=== PATIENT | female | born 1990 | race Caucasian/White ===

== ENCOUNTER 2020-11-11 14:55 | Inpatient (IN) | payer BC, OTHER ==
[~2020-11-11] VITALS: Ht 170.2 cm; Wt 97.6 kg
[~2020-11-11 14:55] MED LIST: COLACE 100MG C100 MG PO; FISH OIL 1,0001 EACH PO; FOLIC ACID 1 MG1 MG PO; IBUPROFEN600 MG PO; IMURAN TAB 50 M50 MG PO; LORTAB 5-325 M1 EACH PO; PREDNISONE 10 M10 MG PO; PRENATAL VITAM1 EAC8 PO
[2020-11-11 17:38] LABS: HEMOGLOBIN 10.4 gm/dl (12.3-15.3); RED BLOOD COUNT 3.63 M/UL (4.00-5.10); WHITE BLOOD COUNT 13.6 K/UL (4.5-11.0)
[2020-11-11 17:55] LABS: BUN/CREATININE RATIO 13 (0-10)
[2020-11-11] MEDS ORDERED: FOLIC ACID 1 MG1 MG PO (21:49)
[2020-11-11] MEDS ORDERED: DAILY VITAMIN1 EAC2 PO (21:50)
[2020-11-11] MEDS ORDERED: CLARITIN 10MG T10 MG PO (21:51)
[2020-11-12 05:21] LABS: HEMOGLOBIN 9.2 gm/dl (12.3-15.3); WHITE BLOOD COUNT 11.1 K/UL (4.5-11.0)
[2020-11-12 05:22] LABS: RED BLOOD COUNT 3.26 M/UL (4.00-5.10)
[2020-11-12 05:58] LABS: BUN/CREATININE RATIO 18 (0-10)
[2020-11-13 04:54] LABS: HEMOGLOBIN 9.2 gm/dl (12.3-15.3); RED BLOOD COUNT 3.3 M/UL (4.00-5.10); WHITE BLOOD COUNT 8.9 K/UL (4.5-11.0)
[2020-11-13 05:18] LABS: BUN/CREATININE RATIO 15 (0-10)
[2020-11-13] MEDS ORDERED: PREDNISONE 10 M10 MG PO (14:16)
[2020-11-13] MEDS ORDERED: BENTYL 10MG CAP10 MG PO (14:16)
[2020-11-13] MEDS ORDERED: FLORASTOR250 MG PO (14:16)
[2020-11-13] MEDS ORDERED: LEVOFLOXACIN500 MG PO (14:16)
[2020-11-13] MEDS ORDERED: FLAGYL500 MG PO (14:16)
[2020-11-14 05:54] LABS: HEMOGLOBIN 9.4 gm/dl (12.3-15.3); RED BLOOD COUNT 3.29 M/UL (4.00-5.10); WHITE BLOOD COUNT 11.8 K/UL (4.5-11.0)
[2020-11-14 06:05] LABS: BUN/CREATININE RATIO 14 (0-10)
[2020-11-15 02:57] LABS: HEMOGLOBIN 9.8 gm/dl (12.3-15.3); RED BLOOD COUNT 3.45 M/UL (4.00-5.10)
[2020-11-15 03:24] LABS: BUN/CREATININE RATIO 15 (0-10)
[2020-11-15 16:46] LABS: ADENOVIRUS F 40/41 Not Detected (Negative); ASTROVIRUS Not Detected (Negative); CAMPYLOBACTER Not Detected (Negative); CRYPTOSPORIDIUM Not Detected (Negative); E.COLI 0157 Not Detected (Negative); ENTAMOEBA HISTOLYTICA Not Detected (Negative); ENTEROAGGREGATIVE E.COLI (EAEC Not Detected (Negative); ENTEROPATHOGENIC E.COLI (EPEC) Not Detected (Negative); ENTEROTOXIGENIC E.COLI (ETEC) Not Detected (Negative); GIARDIA LAMBLIA Not Detected (Negative); NOROVIRUS GI/GII Not Detected (Negative); PLESIOMONAS SHIGELLOIDES Not Detected (Negative); ROTOVIRUS A Not Detected (Negative); SALMONELLA Not Detected (Negative); SAPOVIRUS Not Detected (Negative); SHIG/ENTEROINVAS.ECOLI (EIEC) Not Detected (Negative); SHIGA-LIK TOX.PRO.E.COLI (STEC Not Detected (Negative); VIBRIO Not Detected (Negative); VIBRIO CHOLERAE Not Detected (Negative); YERSINIA ENTEROCOLITICA Not Detected (Negative)
[2020-11-16 04:14] LABS: HEMOGLOBIN 9.4 gm/dl (12.3-15.3); RED BLOOD COUNT 3.32 M/UL (4.00-5.10); WHITE BLOOD COUNT 10.4 K/UL (4.5-11.0)
[2020-11-16 04:27] LABS: BUN/CREATININE RATIO 19 (0-10)
[2020-11-16 08:38] LABS: CLOSTRIDIUM DIFFICILE TOX A/B DETECTED (Negative)
[2020-11-17 02:56] LABS: RED BLOOD COUNT 3.5 M/UL (4.00-5.10); WHITE BLOOD COUNT 10.9 K/UL (4.5-11.0)
[2020-11-17 08:21] LABS: BUN/CREATININE RATIO 21 (0-10)
[2020-11-18 03:56] LABS: HEMOGLOBIN 10.2 gm/dl (12.3-15.3); RED BLOOD COUNT 3.55 M/UL (4.00-5.10); WHITE BLOOD COUNT 9.8 K/UL (4.5-11.0)
[2020-11-18 04:17] LABS: BUN/CREATININE RATIO 23 (0-10)
[2020-11-18] MEDS ORDERED: PREDNISONE 20 M20 MG PO (14:34)
[2020-11-18] MEDS ORDERED: FERROUS GLUCON324 M1 PO (14:44)
== END 2020-11-18 15:58 | disposition home or self-care (01) | DRG 386 ==
LOC: ER1 14:55 → CDU 20:40 → M/S 20:40
PROVIDERS: Internal Medicine; Internal Medicine Infectious Disease; Physician Assistant; ADMIT Internal Medicine
DX: K51.90 Ulcerative colitis, unspecified, without complications (principal); K92.1 Melena; D62 Acute posthemorrhagic anemia; D50.9 Iron deficiency anemia, unspecified; D72.829 Elevated white blood cell count, unspecified; Z83.3 Family history of diabetes mellitus; Z20.822 Contact with and (suspected) exposure to COVID-19
CPT/HCPCS: 36415; 80053; 81001; 82550; 82553; 82607; 83540; 83550; 83690; 83735; 83874; 84100; 84484; 84703; 85025; 86140; 87040; 87045; 87046; 87324; 87425; 87449; 87507; 90471; 96374; 96375; 96376; 99285; C9113; J0171; J0696; J1200; J1650; J1756; J1885; J2270; J2405; J2920; J2930; Q9967; U0002

== ENCOUNTER → 2021-10-12 | Outpatient (CLI) | payer BC ==
[~2021-10-12] MED LIST changes: +BENTYL 10MG CAP10 MG PO; +CLARITIN 10MG T10 MG PO; +DAILY VITAMIN1 EAC2 PO; +FERROUS GLUCON324 M1 PO; +FLAGYL500 MG PO; +FLORASTOR250 MG PO; +LEVOFLOXACIN500 MG PO; +PREDNISONE 20 M20 MG PO
[2021-10-13 12:15] LABS: HBSAG SCREEN Negative (Negative); HEP A AB, IGM Negative (Negative); HEP B CORE AB, IGM Negative (Negative); HEP C VIRUS AB <0.1 (0.0-0.9)
[2021-10-15 11:12] LABS: QUANTIFERON MITOGEN VALUE >10.00 IU/mL (.); QUANTIFERON NIL VALUE 0.01 IU/mL (.); QUANTIFERON TB1 AG VALUE 0.01 IU/mL (.); QUANTIFERON TB2 AG VALUE 0.02 IU/mL (.); QUANTIFERON-TB GOLD PLUS Negative (Negative)
== END ==
LOC: LAB 14:23
PROVIDERS: Internal Medicine Gastroenterology
DX: K51.00 Ulcerative (chronic) pancolitis without complications (principal)
CPT/HCPCS: 36415; 80074

== ENCOUNTER → 2021-11-03 | Outpatient (CLI) | payer BC | LOC: OPSV 10-18 11:00 | DX: K51.00 Ulcerative (chronic) pancolitis without complications (principal) | CPT/HCPCS: 96375; 96413; 96415; J1720; J7050; Q5103 ==

== ENCOUNTER → 2021-11-17 | Outpatient (CLI) | payer BC ==
[~2021-11-17] VITALS: Ht 162.6 cm; Wt 97.5 kg
== END ==
LOC: OPSV 08:00
DX: K51.00 Ulcerative (chronic) pancolitis without complications (principal)
CPT/HCPCS: 96375; 96413; 96415; J1720; J7050; Q5103

== ENCOUNTER → 2022-03-27 | Outpatient (CLI) | payer BC | LOC: KOH-I 16:51 | DX: M25.572 Pain in left ankle and joints of left foot (principal) | CPT/HCPCS: 73610 ==

== ENCOUNTER → 2022-03-28 | Outpatient (CLI) | payer BC | LOC: US 14:00 | DX: M25.472 Effusion, left ankle (principal) | CPT/HCPCS: 93970 ==